=== PATIENT | male | born 1990 | race African-American/Black ===

== ENCOUNTER 2017-06-23 21:38 | Emergency (ER) | payer OTHER ==
[2017-06-23 21:48] VITALS: BP 133/90
--- NOTE | 2017-06-23 21:48 | ED Physician Documentation ---
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 Lac to right upper lip.) Timing - onset: Today (just [employer]) Location of injury: Front (right upper) Associated symptoms: No: LOC, AMS, Nausea / vomiting Symptoms worsen with: Palpation Similar symptoms before: Has not had sx before Recently seen: Not recently seen Review of Systems Throat: denies: Dental pain / toothache Neurologic: denies: Focal weakness, Numbness, Near syncope, Altered mental status, Headache, LOC PD PAST MEDICAL HISTORY - Past Medical History Neuro: None : Other - Past Surgical History Past Surgical History: No - Present Medications Home Medications: Ambulatory Orders Medication Instructions Recorded Confirmed No Known Home Medications [No 06/23/17 06/23/17 Known Home Medications] - Allergies Allergies/Adverse Reactions: Allergies Allergy/AdvReac Type Severity Reaction Status Date / Time No Known Drug Allergies Allergy Verified 06/23/17 21:46 - Social History Does the pt smoke?: No Smoking Status: Never smoker Does the pt drink ETOH?: No Does the pt have substance abuse?: No - Immunizations Immunizations are current?: Yes PD ED PE NORMAL - Vitals Vital signs reviewed: Yes - General General: Alert and oriented X 3, Well developed/nourished - HEENT HEENT: Pharynx benign, Dentition benign, Other (right upper lip with 2 lacs, one just inside kelvin border but not crossig it, and is 5 mm size. Other is outside of lip and also 5 mm size. Presume through lac. No FB. Teeth without injury. ) - Neuro Neuro: Alert and oriented X 3, city editor 2-12 intact, No motor deficit, No sensory deficit, Normal speech, Other Results - Vitals Vitals: Oxygen O2 Source Room air Procedures - Laceration (location) right upper lip Length in cm: 1 Wound type: Linear, Into subcut fat, Clean Neurovascular status: Sensory intact, Motor intact Anesthesia: LET Skin layer closure: Nylon, Interrupted, Size #-0 - enter number (6), Sutures - enter # (2) Other: Patient tolerated well, No complications, Neurovascular intact, Tetanus UTD PD MEDICAL DECISION MAKING - ED course Complexity details: considered differential (small lac at edge of lip and one just inside kelvin border but not crossing it. ), d/w patient Departure - Departure Disposition: 01 Home, Self Care Clinical Impression: Laceration of lip Qualifiers: Encounter type: initial encounter Qualified Code(s): S01.511A - Laceration without foreign body of lip, initial encounter Condition: Stable Record reviewed to determine appropriate education?: Yes Instructions: ED Laceration Mouth Follow-Up: BURKE Dyson [Provider Group] Comments: It is okay to wash and shower. Clean off the wound twice a day with soap and water, or peroxide and water. Apply some antibiotic ointment to it to keep it moist. Also to watch for signs of infection such as purulence, redness or increasing pain. Return to your primary care or the ER at the specified time for suture removal. Suture removal in 7 or 8 days Discharge Date/Time: 06/23/17 22:26
[2017-06-23] MEDS ORDERED: LIDOCAINE-EPINEPH-TETRACAINE 3 ML SYRINGE TOP STA (21:53)
[2017-06-23] MEDS ORDERED: LIDOCAINE-EPINEPH-TETRACAINE 3 ML SYRINGE TOP ONE (22:00)
== END 2017-06-23 22:26 | disposition home or self-care (01) ==
LOC: EDUNIT# → ED 21:38
DX: S01.511A Laceration without foreign body of lip, initial encounter (principal); W51.XXXA Accidental striking against or bumped into by another person, initial encounter; Y93.75 Activity, martial arts; Y92.89 Other specified places as the place of occurrence of the external cause
CPT/HCPCS: 12011; 99282; 99283